=== PATIENT | female | born 1960 | race Caucasian/White ===

== ENCOUNTER → 2016-09-01 | Outpatient (CLI) | payer BC | LOC: WI 12:39 | PROVIDERS: ATTEND Physician Assistant | DX: Z12.31 Encounter for screening mammogram for malignant neoplasm of breast (principal); N64.9 Disorder of breast, unspecified | CPT/HCPCS: 77067; G0202 ==

== ENCOUNTER → 2016-10-03 | Day surgery (SDC) | payer BC ==
[~2016-10-03] MED LIST: LIDOCAINE 2% INJ (20 MG/ML) 20 ML MDV ONE
--- NOTE | 2016-10-03 17:09 | WOMENS IMAGING REPORT ---
EXAM DESCRIPTION: U/S BREAST BX; RIGHT DIG DX MAMMO NO CHG COMPLETED DATE/TIME: 09/30/2016 1:34 pm; 09/30/2016 12:49 pm REASON FOR STUDY: RT BREAST LUMP; N63; N63 S/P US BX FOR CLIP PLACEMENT N63 UNSPECIFIED LUMP IN RERE AST COMPARISON: Mammograms and ultrasound 09/06/2016 Screening mammograms 09/01/2016 TECHNIQUE: The procedure was discussed with the patient and the patient agreed to proceed. The patient was scanned and the area of interest in the 10 to 11 go o'clock position 10 cm from the n ipple of the right breast was localized. This correlates with the area of concern on prior imaging s tudies. This area was targeted for ultrasound-guided core biopsy. After sterile skin prep and 3.5 cc local lidocaine 1% for skin and deep tissue anesthesia, a 14 gauge coaxial core biopsy needle was used to obtain several cores of tissue from the lesion. Under ultras ound guidance, a ribbon clip was placed in the areas sampled. There were no immediate post-procedure complications. MAMMOGRAM: Post-procedure two view mammogram was acquired in the digital mammogram suite. The clip wa s in the expected location. No significant hematoma. Pathology yields a diagnosis of invasive well-differentiated ductal carcinoma, tubular variant Pathology is concordant. LIMITATIONS: None. FINDINGS: Ultrasound guided breast biopsy as described above. POST PROCEDURE MAMMOGRAMS FOR MARKER PLACEMENT: Yes IMPRESSION: ULTRASOUND-GUIDED CORE BIOPSY OF THE RIGHT BREAST YIELDS A DIAGNOSIS OF INVASIVE WELL DI FFERENTIATED DUCTAL CARCINOMA COMMENT: COMMUNICATION: Dr. Caputo was notified of these findings 10/03/2016, 1340 hours Patient medication list reviewed: Yes- Quality ID# [id number]:Eligible professional attests to documenting i n the medical record they obtained, updated, or reviewed the patient's current medications. TECHNICAL DOCUMENTATION: JOB ID: [id number] [employer]- All Rights Reserved
== END ==
LOC: WI 10:18
PROVIDERS: ATTEND Surgery
PROC: 0HBT3ZX Excision of Right Breast, Percutaneous Approach, Diagnostic (ICD-10-PCS; principal; 2016-10-03)
DX: C50.911 Malignant neoplasm of unspecified site of right female breast (principal); Z17.0 Estrogen receptor positive status [ER+]
CPT/HCPCS: 88305 ×2; 19083; J3490

== ENCOUNTER 2018-02-11 19:43 | Emergency (ER) | payer BC ==
[2018-02-11] MEDS ORDERED: RINGERS SOLUTION,LACTATED 1,000 ML IV ONE ×4 (19:59→23:26)
[2018-02-11] MEDS ORDERED: LIDOCAINE 1% INJ-PF (10 MG/ML) 30 ML SDV ONE (20:03)
[2018-02-11 20:08] LABS: ABSOLUTE EOSINOPHILS # (AUTO) 0.1 10^3/uL (0.0-0.6); ABSOLUTE LYMPHOCYTES (AUTO) 2.9 10^3/uL (0.5-4.7); ABSOLUTE MONOCYTES (AUTO) 0.9 10^3/uL (0.1-1.4); ABSOLUTE NEUT (AUTO) 9.8 10^3/uL (1.7-8.2); BASOPHILS % (AUTO) 0.3 % (0-2); EOSINOPHILS % (AUTO) 0.8 % (0-6); HEMATOCRIT 19.3 % (36.0-47.0); LYMPHOCYTES % (AUTO) 21.1 % (13-45); MEAN CORPUSCULAR HEMOGLOBIN 36.5 pg (27.0-33.4); MEAN CORPUSCULAR HGB CONC 35.3 g/dL (32.0-36.0); MEAN CORPUSCULAR VOLUME 103 fl (80-97); MONOCYTES % (AUTO) 6.2 % (3-13); RED BLOOD COUNT 1.87 10^6/uL (3.72-5.28); RED CELL DISTRIBUTION WIDTH 15.6 % (11.5-14.0); SEGMENTED NEUTROPHILS % (AUTO) 71.6 % (42-78); TOTAL CELLS COUNTED % (AUTO) 100 %; WHITE BLOOD COUNT 13.7 10^3/uL (4.0-10.5)
--- NOTE | 2018-02-11 20:09 | ER Document Report ---
ED General - General Chief Complaint: Altered Mental Status Stated Complaint: ALTERED MENTAL STATUS Time Seen by Provider: 02/11/18 19:58 Cannot obtain history due to: Unstable vital signs, Altered mental status Notes: Patient is a 57-year-old female who presents from home by EMS after apparently being found lying on her couch, covered in feces and urine, incoherent. There is apparently blood scattered throughout the home. Patient is profoundly confused, unable to provide any additional history. No family is available at the bedside or by contact. TRAVEL OUTSIDE OF THE [place] IN LAST 30 DAYS: No - Related Data Allergies/Adverse Reactions: Penicillins Allergy (Severe, Verified 09/27/12 10:54) Hives codeine [Codeine] Allergy (Intermediate, Verified 09/27/12 10:54) VOMITING gabapentin [From Neurontin] Allergy (Verified 04/26/14 11:17) Past Medical History - General Information source: Emergency Med Personnel Cannot obtain history due to: Altered mental status - Social History Smoking Status: Unknown if Ever Smoked Lives with: Alone Family History: Reviewed & Not Pertinent, Other - dad-colon cancer- mom -alzheimers Patient has suicidal ideation: No Patient has homicidal ideation: No - Past Medical History Cardiac Medical History: Denies: Hx Coronary Artery Disease, Hx Heart Attack, Hx Hypertension Pulmonary Medical History: Denies: Hx Asthma, Hx Bronchitis, Hx COPD, Hx Pneumonia Neurological Medical History: Denies: Hx Cerebrovascular Accident, Hx Seizures Renal/ Medical History: Denies: Hx Peritoneal Dialysis GI Medical History: Reports: Hx Gastroesophageal Reflux Disease Musculoskeletal Medical History: Denies Hx Arthritis Past Surgical History: Reports: Hx Cholecystectomy. Denies: Hx Hysterectomy - Immunizations Hx Diphtheria, Pertussis, Tetanus Vaccination: No Review of Systems - Review of Systems -: Yes ROS unobtainable due to patient's medical condition Physical Exam - Vital signs Vitals: Pulse Resp BP Pulse Ox 84 16 129/99 H 97 02/11/18 19:46 02/11/18 19:46 02/11/18 19:46 02/11/18 19:46 Interpretation: Hypotensive Notes: PHYSICAL EXAMINATION: GENERAL: Extremely ill in appearance, icteric, confused HEAD: Swelling to the right posterior occiput consistent with a scalp hematoma EYES: Pupils equal round and reactive to light, extraocular movements intact, scleral icterus present ENT: nares patent, oropharynx clear without exudates. Extremely dry mucous membranes. NECK: No midline cervical spine tenderness step-offs or deformities, normal range of motion, supple without lymphadenopathy LUNGS: Breath sounds clear to auscultation bilaterally and equal. No wheezes rales or rhonchi. HEART: Regular rate and rhythm without murmurs ABDOMEN: Distended but soft abdomen, nontender, normoactive bowel sounds. No guarding, no rebound. No masses appreciated. EXTREMITIES: Trace edema in the bilateral lower extremities that is equal and symmetric. No cyanosis. NEUROLOGICAL: No focal neurological deficits. Moves all extremities spontaneously and on command. PSYCH: Somewhat somnolent, acting in a manner consistent with delirium, oriented only to person SKIN: Warm, Dry, diffuse icterus Course - Re-evaluation Re-evalutation: 02/11/18 20:08 Patient presents acutely encephalopathic, only knows her name, cannot tell me the details what is going on today, not oriented to place, year, current events. She is diffusely icteric, has caput medusa but no evidence of significant intra-abdominal ascites to suggest a possible spontaneous bacterial peritonitis. She is noted to be hypotensive into the 80s systolic. Apparently she was found lying on her couch, has evidence of a posterior scalp head trauma on exam. Patient appears profoundly dehydrated. Will begin IV fluid resuscitation, CT of the head and cervical spine, chest x-ray, labs including ammonia level, and will continue to reassess at regular intervals. The patient is critically ill and require frequent reassessments. 02/11/18 20:50 Patient remains hypotensive, working through her second liter of lactated Ringer 's. Initial laboratory results are returning, demonstrate significant anemia hemoglobin of 6.9. Patient has been written for 2 units of packed red blood cells. Stool guaiac will be sent. Will continue to reassess at regular intervals. Labs also seem to suggest hepatorenal syndrome this patient has significant liver dysfunction as well as renal dysfunction. 02/11/18 22:01 Patient's ammonia returns quite elevated. She remains encephalopathic. Blood pressure is relatively stable currently map is 79. She is receiving 2 units of packed red blood cells that were emergently released given her hypotension. If patient does not have resolution or improvement of her hypotension after receiving these 2 units as well as an additional liter of fluid which would total of 3 L of fluid she will require central line placement for vasopressor infusion. 10/28/18 22:10 CT of the head has been read as having a small right-sided subdural hematoma without any evidence of midline shift. Likely secondary to trauma. Cervical spine is clear. 02/11/18 22:36 CT the abdomen and pelvis shows cirrhosis but no evidence of actual liver cancer. I have contacted [facility] and requested transfer. The patient's blood pressure is significantly improving with blood transfusion currently 115 and 104. Awaiting callback from MICU attending. 02/11/18 23:32 Patient's blood pressure is again downtrending current map of 77. Does not meet criteria for pressor infusion. I have discussed this case with the MICU attending at [facility] Dr. Cleary who has accepted the patient 02/11/18 23:51 Patient's blood pressure has again trended upwards map is now 106. Mental status remains poor. Lactulose 60 mg has been administered. Will continue to reassess at regular intervals. 02/12/18 01:50 Blood pressures continue to be somewhat soft at this point although map remains at 72. She continues to be without indication for vasopressor infusion. The patient did spike a temperature approximately 1 hour ago. Cultures have ready been obtained. The patient has been started on broad-spectrum antibiotics given her degree of illness and the uncertainty of the source of the fever. Cefepime and vancomycin are being infused. Patient was also noted to begin wheezing. A single duo nebulizer did resolve her wheezing. Patient's urine output remains very poor she is only put out 200 cc of urine despite a total of 4 L of fluid. An additional liter has been ordered. Awaiting transport. 02/12/18 02:37 Patient's blood pressure did continue to deteriorate. I did place a right internal jugular central catheter on second attempt. Patient did have some atherosclerotic disease so initial attempt was aborted as I could not thread the wire. A new puncture site was obtained and the wire threaded easily. Post chest x-ray does confirm that the line is in appropriate position, no evidence of pneumothorax. Norepinephrine infusion will be starting at 8 mcg. Transport has arrived. Ground transport is concerned about the stability of the patient for ground transport given that she is now requiring vasopressor agents. We are also giving albumin as well as a stress dose of 100 mg's of hydrocortisone given her ongoing hypotension. 02/12/18 03:25 Patient will fly given her worsening stability although at this point on norepinephrine her blood pressure is satisfactory. Patient's mental status is overall improving although she does remain delirious. However at this point she does know that she is in the hospital which is a significant improvement over the past several hours. - Vital Signs Vital signs: Temp Pulse Resp BP Pulse Ox 96.8 F L 84 18 111/98 H 99 02/11/18 22:22 02/11/18 22:22 02/12/18 03:11 02/12/18 03:11 02/12/18 03:11 - Laboratory Result Diagrams: 02/11/18 19:25 02/12/18 00:26 Laboratory results interpreted by me: 02/11/18 02/11/18 02/11/18 19:25 19:25 19:25 WBC 13.7 H RBC 1.87 L Hgb 6.8 L Hct 19.3 L MCV 103 H MCH 36.5 H RDW 15.6 H Plt Count 92 L Absolute Neutrophils 9.8 H PT 20.8 H VBG pH VBG pCO2 Sodium 132.3 L Chloride 93 L BUN 49 H Creatinine 2.97 H Est GFR ( Amer) 20 L Est GFR (Non-Af Amer) 16 L Calcium 8.1 L Total Bilirubin 10.3 H Direct Bilirubin 8.1 H AST 224 H ALT 68 H Ammonia Creatine Kinase CK-MB (CK-2) Total Protein 6.2 L Albumin 2.5 L Urine Bilirubin Urine Urobilinogen Crossmatch 02/11/18 02/11/18 02/11/18 19:25 19:25 20:45 WBC RBC Hgb Hct MCV MCH RDW Plt Count Absolute Neutrophils PT VBG pH VBG pCO2 Sodium Chloride BUN Creatinine Est GFR ( Amer) Est GFR (Non-Af Amer) Calcium Total Bilirubin Direct Bilirubin AST ALT Ammonia Creatine Kinase 1342 H CK-MB (CK-2) 9.69 H Total Protein Albumin Urine Bilirubin Urine Urobilinogen Crossmatch See Detail 02/11/18 02/11/18 02/11/18 21:00 21:15 21:20 WBC RBC Hgb Hct MCV MCH RDW Plt Count Absolute Neutrophils PT VBG pH 7.50 H VBG pCO2 31.3 L Sodium Chloride BUN Creatinine Est GFR ( Amer) Est GFR (Non-Af Amer) Calcium Total Bilirubin Direct Bilirubin AST ALT Ammonia 52.8 H Creatine Kinase CK-MB (CK-2) Total Protein Albumin Urine Bilirubin SMALL H Urine Urobilinogen 4.0 H Crossmatch 02/12/18 00:26 WBC RBC Hgb Hct MCV MCH RDW Plt Count Absolute Neutrophils PT VBG pH VBG pCO2 Sodium 134.0 L Chloride BUN 46 H Creatinine 2.68 H Est GFR ( Amer) 22 L Est GFR (Non-Af Amer) 18 L Calcium 8.0 L Total Bilirubin 10.2 H Direct Bilirubin 7.9 H AST 202 H ALT 69 H Ammonia Creatine Kinase CK-MB (CK-2) Total Protein 5.9 L Albumin 2.4 L Urine Bilirubin Urine Urobilinogen Crossmatch - Diagnostic Test Radiology reviewed: Image reviewed, Reports reviewed Radiology results interpreted by me: 02/12/18 01:50 CT head: Small subdural hematoma over the falx on the left side Chest x-ray: No acute infiltrate - EKG Interpretation by Me Additional EKG results interpreted by me: 02/12/18 01:51 Sinus rhythm. Rate 86. No ST elevations or depressions. QTC is 484. Procedures - Central Line Right Internal jugular Consent obtained: No - Emergent, confused Central line pre-insertion: Sterile PPE donned, Chloraprep applied, Sterile drapes applied Central line lumen type: Triple Anesthetic type: 1% Lidocaine mL's of anesthesia: 2 Ultrasound guided: Yes CM at insertion site: 28 Line secured with sutures: Yes Central line post-insertion: Blood return from lumens, Biopatch applied, Sutured , Sterile dressing applied, Position confirmed w/ CXR Number of attempts: 2 Complications: No Critical Care Note - Critical Care Note Total time excluding time spent on procedures (mins): 105 Comments: Critical care time spent obtaining history from patient or surrogate, discussions with consultants, development of treatment plan with patient or surrogate, evaluation of patient's response to treatment, examination of patient , ordering and performing treatments and interventions, ordering and review of laboratory studies, re-evaluation of patient's condition, ordering and review of radiographic studies and review of old charts Discharge - Discharge Clinical Impression: Delirium, SIRS (systemic inflammatory response syndrome), Hepatic encephalopathy, Hepatorenal syndrome, Subdural hematoma, Hypovolemic shock Head trauma Qualifiers: Encounter type: initial encounter Qualified Code(s): S09.90XA - Unspecified injury of head, initial encounter Liver cirrhosis Qualifiers: Hepatic cirrhosis type: unspecified hepatic cirrhosis Ascites presence: with ascites Qualified Code(s): K74.60 - Unspecified cirrhosis of liver Condition: Critical Disposition: [facility] Referrals: BRYANT IBRAHIM PA-C [NO LOCAL MD] - Follow up as needed
[2018-02-11 20:10] LABS: PROTHROMBIN TIME 20.8 SEC (11.4-15.4)
[2018-02-11 20:17] LABS: ALANINE AMINOTRANSFERASE 68 U/L (9-52); ALBUMIN 2.5 g/dL (3.5-5.0); ALKALINE PHOSPHATASE 104 U/L (38-126); ANION GAP 12 (5-19); ASPARTATE AMINO TRANSFERASE 224 U/L (14-36); BILIRUBIN,DIRECT 8.1 mg/dL (0.0-0.4); BILIRUBIN,TOTAL 10.3 mg/dL (0.2-1.3); BLOOD UREA NITROGEN 49 mg/dL (7-20); CALCIUM 8.1 mg/dL (8.4-10.2); CARBON DIOXIDE 27 mmol/L (22-30); CHLORIDE 93 mmol/L (98-107); GLUCOSE 86 mg/dL (75-110); POTASSIUM 3.8 mmol/L (3.6-5.0); SODIUM 132.3 mmol/L (137-145); TOTAL PROTEIN 6.2 g/dL (6.3-8.2)
[2018-02-11 20:33] LABS: HEMOGLOBIN 6.8 g/dL (12.0-15.5)
[2018-02-11 20:43] LABS: PLATELET COUNT 92 10^3/uL (150-450)
[2018-02-11] MEDS ORDERED: NORMAL SALINE 250 ML IV PRN (20:51)
[2018-02-11 21:37] LABS: VENOUS BLOOD BASE EXCESS 0.4 mmol/L; VENOUS BLOOD HCO3 23.8 mmol/L (20-32); VENOUS BLOOD PCO2 31.3 mmHg (35-63); VENOUS BLOOD PH 7.5 (7.30-7.42)
[2018-02-11] MEDS ORDERED: LACTULOSE SYRUP 20 GM/30 ML UDCUP PO ONE (22:01)
--- NOTE | 2018-02-11 22:06 | EKG REPORT ---
SEVERITY:- ABNORMAL ECG - SINUS RHYTHM LOW VOLTAGE IN FRONTAL LEADS BORDERLINE T ABNORMALITIES, INFERIOR LEADS : Confirmed by: Percy Morrow 11-Feb-2018 22:05:13
--- NOTE | 2018-02-11 22:10 | RADIOLOGY REPORT (SQ) ---
CT BRAIN AND CERVICAL SPINE WITHOUT IV CONTRAST HISTORY: Trauma. COMPARISON: None. TECHNIQUE: CT scan of the brain and cervical spine without contrast. This exam was performed according to our departmental dose-optimization program, which includes automated exposure control, adjustment of the mA and/or kV according to patient size and/or use of iterative reconstruction technique. FINDINGS: BRAIN: Small subdural hematoma along the left falx (coronal image 34). Additional hyperdensity in the left frontoparietal region which may represent artifact versus additional small subdural hematoma (coronal image 18). The rao-white matter differentiation is preserved without evidence of acute infarction. No midline shift, mass effect, or hydrocephalus. No air-fluid levels are seen in the sinuses. Left occipital scalp hematoma. No underlying calvarial fracture is seen. CERVICAL SPINE: No acute fracture. Straightening of the normal cervical lordosis, which may be due to cervical collar, muscle spasm, or patient positioning. No static listhesis. Degenerative disc disease at C5-C6. No advanced spinal canal stenosis. No prevertebral soft tissue swelling. IMPRESSION: 1. Small subdural hematoma along the left falx. Additional hyperdensity in the left frontoparietal region which may represent artifact versus additional small subdural hematoma. 2. No acute fracture or static listhesis of the cervical spine.
--- NOTE | 2018-02-11 22:23 | RADIOLOGY REPORT (SQ) ---
CT ABDOMEN PELVIS WITHOUT IV CONTRAST HISTORY: Worsening liver failure. Hepatic encephalopathy. COMPARISON: None. TECHNIQUE: CT scan of the abdomen and pelvis without contrast. This exam was performed according to our departmental dose-optimization program, which includes automated exposure control, adjustment of the mA and/or kV according to patient size and/or use of iterative reconstruction technique. FINDINGS: Please note that the evaluation of the solid and hollow abdominal viscera is limited without IV contrast. Lung bases are clear. No pleural or pericardial effusions. Nodular contour of the liver consistent with cirrhosis. Cholecystectomy clips are present. Spleen, pancreas, and adrenal glands are unremarkable. No urinary calculus or obstructive uropathy. Serna catheter in the bladder with the tip which appears to extend outside the bladder lumen abutting the anterior uterus (coronal image 50 and sagittal image 64). Small hiatal hernia. No bowel obstruction. Appendix is normal. Submucosal fatty deposition of the ascending colon suggesting chronic colitis. Moderate amount of abdominopelvic ascites. No acute osseous findings. IMPRESSION: 1. Cirrhotic liver with moderate amount of abdominopelvic ascites. 2. Serna catheter in the bladder with the tip which appears to extend outside the bladder lumen abutting the anterior uterus. However, evaluation is limited due to lack of IV contrast and surrounding ascites.
[2018-02-11 22:24] LABS: AMORPHOUS SEDIMENT,URINE TRACE /HPF; APPEARANCE,URINE CLOUDY; BILIRUBIN,URINE SMALL (NEGATIVE); COLOR,URINE BROWN; GLUCOSE, URINE NEGATIVE (NEGATIVE); KETONES,URINE NEGATIVE (NEGATIVE); LEUKOCYTE ESTERASE,URINE NEGATIVE (NEGATIVE); NITRITE,URINE NEGATIVE (NEGATIVE); PROTEIN,URINE NEGATIVE (NEGATIVE); URINE SPECIFIC GRAVITY 1.017
--- NOTE | 2018-02-11 22:49 | RADIOLOGY REPORT (SQ) ---
Chest single view on 02/11/2018 at 9:47 PM CLINICAL INDICATION: Chest pain COMPARISON: None FINDINGS: Mild cardiomegaly is noted. Hilar and mediastinal contours are within normal limits. The lungs are clear. Pulmonary vascularity is within normal limits. IMPRESSION: No acute disease.
[2018-02-11 23:11] LABS: CREATINE KINASE 1342 U/L (30-135)
[2018-02-11 23:21] LABS: CREATINE KINASE MB 9.69 ng/mL (<4.55)
[2018-02-11 23:25] LABS: TROPONIN I < 0.012 ng/mL
[2018-02-12] MEDS ORDERED: VANCOMYCIN HCL INJ 1000 MG VIAL IV ONE (00:37)
[2018-02-12] MEDS ORDERED: CEFEPIME 2 GM/D5W RTU 2 GM/50 ML RTUPB IV ONE (00:37)
[2018-02-12] MEDS ORDERED: ACETAMINOPHEN 325 MG TABLET PO ONE (00:38)
[2018-02-12 00:57] LABS: ALANINE AMINOTRANSFERASE 69 U/L (9-52); ALBUMIN 2.4 g/dL (3.5-5.0); ALKALINE PHOSPHATASE 96 U/L (38-126); ANION GAP 12 (5-19); ASPARTATE AMINO TRANSFERASE 202 U/L (14-36); BILIRUBIN,DIRECT 7.9 mg/dL (0.0-0.4); BILIRUBIN,TOTAL 10.2 mg/dL (0.2-1.3); BLOOD UREA NITROGEN 46 mg/dL (7-20); CARBON DIOXIDE 23 mmol/L (22-30); CHLORIDE 99 mmol/L (98-107); GLUCOSE 105 mg/dL (75-110); TOTAL PROTEIN 5.9 g/dL (6.3-8.2)
[2018-02-12] MEDS ORDERED: IPRATROPIUM/ALBUTEROL 0.5-2.5 MG/3 ML AMPUL NEB ONE (01:13)
[2018-02-12] MEDS ORDERED: RINGERS SOLUTION,LACTATED 1,000 ML IV ONE (01:52)
[2018-02-12] MEDS ORDERED: HYDROCORTISONE SOD SUCCINATE INJ/PF 100 MG/2 ML SDV IV ONE (02:09)
[2018-02-12] MEDS ORDERED: ALBUMIN HUMAN 12.5 GM/50 ML RTUINJ IV SCH (02:15)
[2018-02-12] MEDS ORDERED: NOREPINEPHRINE BITARTRATE INJ/PF 4 MG/4 ML SDV IV ONE (02:17)
[2018-02-12] MEDS ORDERED: DEXTROSE 5%-WATER 250 ML with NOREPINEPHRINE BITARTRATE 4 MG IV PRN ×2 (02:30)
--- NOTE | 2018-02-12 02:57 | RADIOLOGY REPORT (SQ) ---
EXAM DESCRIPTION: XR CHEST 1 VIEW COMPLETED DATE/TME: 02/12/2018 02:31 CLINICAL HISTORY: 57 years, Female, post line COMPARISON: 02/11/2018 NUMBER OF VIEWS: One TECHNIQUE: AP view of the chest LIMITATIONS: None. FINDINGS: The right IJ line terminates within the SVC. The lungs are clear. The heart size is stable. There is no pneumothorax or pleural effusion. The bones are unchanged. IMPRESSION: Satisfactory position of the right IJ central line without complication 2010 [employer]- All Rights Reserved
[2018-02-12 03:20] VITALS: BP 111/98
== END 2018-02-12 03:45 | disposition short-term general hospital (02) ==
LOC: ER 19:43
DX: S06.5X9A Traumatic subdural hemorrhage with loss of consciousness of unspecified duration, initial encounter (principal); X58.XXXA Exposure to other specified factors, initial encounter; R65.10 Systemic inflammatory response syndrome (SIRS) of non-infectious origin without acute organ dysfunction; K76.7 Hepatorenal syndrome; K72.90 Hepatic failure, unspecified without coma; D64.9 Anemia, unspecified; K74.60 Unspecified cirrhosis of liver; R18.8 Other ascites; R57.1 Hypovolemic shock; I70.8 Atherosclerosis of other arteries; R50.9 Fever, unspecified; R06.2 Wheezing; R41.0 Disorientation, unspecified; Z88.0 Allergy status to penicillin; Z88.5 Allergy status to narcotic agent; Z88.6 Allergy status to analgesic agent
CPT/HCPCS: 93005; 99291; 99292; 96361; 96375; 96365; 96366; 96368; 86900; 86901; 36415; 87040; 87086; 82553; 36430; 86850; 82140; 82550; 85025; 85610; 82272; 80053; 81001; 84484; 86920; 82803; 83605; 71045 ×2; 70450; 72125; 74176; 93010; 36556; C1751; P9016; P9047; J1720; J3490; J7120 ×2; J3370; J7620; J0692